=== PATIENT | female | born 1975 | race Two or more races ===

== ENCOUNTER 2019-08-17 10:25 | Emergency (ER) | payer SELFPAY ==
[2019-01-03 11:00] VITALS: BP 103/59
[~2019-08-17 10:25] MED LIST: HYDR-2761 PO; ONDA4TAB10 SL; SERT25TA PO; TAMS0.4C97 PO
== END 2019-08-17 10:43 | disposition left against medical advice (07) ==
LOC: ER 10:25
DX: M54.5 Low back pain (principal); Z53.21 Procedure and treatment not carried out due to patient leaving prior to being seen by health care provider